=== PATIENT | female | born 1975 | race Caucasian/White ===

== ENCOUNTER 2024-01-23 05:37 | Observation (INO) ==
--- NOTE | 2024-01-23 06:11 | DR.EXTPAIN ---
HPI Time seen Time Seen by Provider: 01/23/24 06:10 PCP Primary Care Physician: Amparo Gipson HPI Comment HPI Comment: Redness, swelling and pain left foot times 2 days. while cleaning her porch Monday, she saw spider between her foot and the ground. increasing redness and swelling since. Symptoms worse today. Patient denies fever. Complaint/Symptoms Chief Complaint Doctor Comments: Patient is 48yr old female in ER with above history. Patient is diabetic. 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 Chief Complaint:: Pt states she was cleaning her porch last Monday and that when she look downed she seen a black spider between her foot and the ground. Pt states she is having pain to her left foot and that it feels like she is walking on bricks. 2+ pitting edema, redness and warm skin noted to left foot. Self Treatment fo Chief Complaint: Cephalein 500 mg COVID-19 Coronavirus risk:travel/contact w/high risk person: No Has patient experienced Coronavirus symptoms: No Nurses notes reviewed Nurses Notes Review: Yes Source History Provided: Patient Mode of arrival Mode of Arrival: Ambulatory Timing Onset of Chief Complaint: 01/21/24 PMH PMH Past Medical History: Yes Past Medical History: Diabetes Past Medical History Comment: Chrons, toe amputation x2 Past Surgical History: Yes Surgical History: and Tonsillectomy Past Surgical History Comment: hernia repair, tubal ligation Family History History of Family Medical Conditions: Yes Family Medical History: Diabetes Mellitus, Cancer and [place] Social History Does patient currently use any type of tobacco product: No Have you used tobacco products in the last 12 months: No Type of Tobacco Use: None Does any household member use tobacco: No Alcohol Use: None Do you use any recreational Drugs:: No Lives With: Alone Lives Where: Home Travel Risk Coronavirus risk:travel/contact w/high risk person: No Has patient experienced Coronavirus symptoms: No Infectious screening In the last 2 months have you had wt loss of >10#?: NO Have you had fever, night sweats or hemotysis?: No Have you traveled outside the country in the last 6 months?: No Isolation: Standard ROS Review of Systems Constitutional: No Symptoms Reported Eyes: No Symptoms Reported ENTM: No Symptoms Reported Respiratoy: No Symptoms Reported Cardiovascular: No Symptoms Reported Gastrointestinal/Abdominal: No Symptoms Reported Genitourinary: No Symptoms Reported Neurological: No Symptoms Reported Musculoskeletal: Foot (celuilitis, redness, pain left foot.) Integumentary: Wound (cellulitis left foot.) Hematologic/Lymphatic: No Symptoms Reported Endocrine: No Symptoms Reported Psychiatric: No Symptoms Reported All Other Systems: Reviewed and Negative PE Vital Signs Vitals: Vital Signs Temperature 98.2 F Pulse Rate 94 Respiratory Rate 18 Blood Pressure 132/74 O2 Sat by Pulse Oximetry 97 General Limitations: No Limitations General Appearance: Alert and In No Apparent Distress Head Head Exam: Normal Inspection and Atraumatic Eyes Eye exam: Normal Appearance ENT ENT Exam: Normal Exam, Normal Oropharynx, Normal External Ear Exam and TM's Normal Bilaterally Neck Neck Exam: Normal Inspection and Trachea Midline; negative Tenderness Chest Chest Inspection: Normal Inspection and Symmetric Chest Wall Rise; negative Tenderness Respiratory Respiratory Exam: Normal Lung Sounds Bilat; negative Accessory Muscle Use, Chest Wall Tenderness or Respiratory Distress Respiratory Exam: Bilateral: Clear to Auscultation Cardiovascular Cardiovascular Exam: Regular Rate, Normal Rhythm and Normal Heart Sounds; negative Systolic Murmur or Diastolic Murmur Abdominal Exam Abdominal Exam: Normal Inspection, Normal Bowel Sounds and Soft; negative Tenderness Extremities Extremities Exam: Tenderness (SWELLING, REDNESS AND TENDERNESS LEFT FOOT.) Lower Extremities Foot/Toe Exam: Tenderness (LT FOOT), Swelling (LT FOOT) and Other (PREVIOUS 2 LEFT TOE AMPUTATION) Back Back Exam: Normal Inspection; negative (R) CVA Tenderness or (L) CVA Tenderness Neurological Neurological Exam: Alert, Oriented X3 and Motor Sensory Deficit (DIABETIC NEUROPATHY.) Psychiatric Psychiatric Exam: Normal Affect and Normal Mood Skin Skin Exam: Other (INFECTED LEFT FOOT/CELLULITIS.) MDM Differential Diagnosis Differential Diagnosis: Other (INFECTED LEFT FOOT, CELLULITIS LEFT FOOT, CROHNS DISEASE.) COURSE Treatment Treatment: See orders done while patient was in ER. Patient is admitted to hospital for further management. Consultation Consultation Comments: Discussed patient with Dr. BLEVINS. He will admit patient. Education/Counseling Education/Counseling: Patient Educated On: Diagnosis ROR Labs Reviewed Laboratory Results Reviewed?: Yes 01/24/24 04:15 01/24/24 04:15 Laboratory: WBC 9.5 X10^3/uL (3.6-10.0) 01/23/24 06:30 RBC 3.04 X10^6/uL (3.5-5.4) L 01/23/24 06:30 Hgb 9.4 g/dL (12.0-16.0) L 01/23/24 06:30 Hct 27.4 % (36.0-47.0) L 01/23/24 06:30 MCV 90.2 fL (80.0-100.0) 01/23/24 06:30 MCH 30.9 pg (27.0-34.0) 01/23/24 06:30 MCHC 34.2 g/dL (33.0-35.0) 01/23/24 06:30 RDW 13.5 % (11.6-16.5) 01/23/24 06:30 Plt Count 302 X10^3/uL (150.0-450.0) 01/23/24 06:30 MPV 7.1 fL (7.4-11.0) L 01/23/24 06:30 Neut % (Auto) 73.2 % (42.0-75.0) 01/23/24 06:30 Lymph % (Auto) 17.0 % (21.0-51.0) L 01/23/24 06:30 [place] % (Auto) 6.7 % (0.0-13.0) 01/23/24 06:30 Eos % (Auto) 2.5 % (0.9-2.9) 01/23/24 06:30 Baso % (Auto) 0.6 % (0.2-1.0) 01/23/24 06:30 Neut # (Auto) 6.9 x10^3/uL (2.2-4.8) H 01/23/24 06:30 Lymph # (Auto) 1.6 X10^3/uL (1.3-2.9) 01/23/24 06:30 [place] # (Auto) 0.6 x10^3/uL (0.3-0.8) 01/23/24 06:30 Eos # (Auto) 0.2 x10^3/uL (0.0-0.2) 01/23/24 06:30 Baso # (Auto) 0.1 X10^3/uL (0.0-0.1) 01/23/24 06:30 Absolute Nucleated RBC 0.0 /100WBC 01/23/24 06:30 Sodium 139 mmol/L (136-145) 01/23/24 06:30 Corrected Sodium 139 mmol/L (136-145) 01/23/24 06:30 Potassium 3.4 mmol/L (3.5-5.1) L 01/23/24 06:30 Chloride 101 mmol/L (98-107) 01/23/24 06:30 Carbon Dioxide 26.4 mmol/L (21-32) 01/23/24 06:30 BUN 9 mg/dL (7-18) 01/23/24 06:30 Creatinine 1.05 mg/dL (0.55-1.02) H 01/23/24 06:30 Est GFR (MDRD) Af Amer > 60 (>60) 01/23/24 06:30 Est GFR (MDRD) Non-Af 60 (>60) 01/23/24 06:30 Glucose 115 mg/dL (65-99) H 01/23/24 06:30 Calcium 9.0 mg/dL (8.5-10.1) 01/23/24 06:30 Corrected Calcium 9.6 mg/dL (8.5-10.1) 01/23/24 06:30 Total Bilirubin 0.60 mg/dL (0.2-1.0) 01/23/24 06:30 AST 13 Units/L (15-37) L 01/23/24 06:30 ALT 14 Units/L (12-78) 01/23/24 06:30 Alkaline Phosphatase 61 Units/L (46-116) 01/23/24 06:30 Total Protein 8.1 g/dL (6.4-8.2) 01/23/24 06:30 Albumin 3.2 g/dL (3.4-5.0) L 01/23/24 06:30 Globulin 4.9 g/dL (2.5-4.5) H 01/23/24 06:30 Albumin/Globulin Ratio 0.7 Ratio (1.1-2.1) L 01/23/24 06:30 XRAY XRAY Interpreted by: Radiologist (Report noted.) and Self Opioid Opioid Risk Tool Age (Juan Antonio box if 16-45): Yes History of Preadolescent Sexual Abuse: No Total: 1 Total Score Risk Category: Low Risk Copyright: Michele URIBE predicting aberrant behaviors Discharge Plan Diagnosis Discharge Problem: Cellulitis of left foot Crohn disease Qualifiers: Gastrointestinal tract location: unspecified location Digestive disease complication type: unspecified complication Qualified Code(s): K50.919 - Crohn's disease, unspecified, with unspecified complications Discharge Plan Patient Disposition: 09 ADMITTED INPATIENT Condition: Stable Orders to Discharge Patient Discharge Orders: Discharge (Routine); Ordered 01/24/24 Ordered By: IHSAN BLEVINS
[2024-01-23] MEDS: NS 1,000 ML IV 1,000 ML IV SCH (06:50)
[2024-01-23] MEDS: VANCOMYCIN IV *PREMIX 1 G/200 ML BAG 1 G/200 ML PIGGYBACK IV ONE (06:50)
[2024-01-23 07:24] LABS: BASOPHILS # (AUTO) 0.1 X10^3/uL (0.0-0.1); BASOPHILS % (AUTO) 0.6 % (0.2-1.0); EOSINOPHILS # (AUTO) 0.2 x10^3/uL (0.0-0.2); EOSINOPHILS % (AUTO) 2.5 % (0.9-2.9); HEMATOCRIT 27.4 % (36.0-47.0); HEMOGLOBIN 9.4 g/dL (12.0-16.0); LYMPHOCYTES # (AUTO) 1.6 X10^3/uL (1.3-2.9); MEAN CORPUSCULAR HEMOGLOBIN 30.9 pg (27.0-34.0); MEAN CORPUSCULAR HGB CONC 34.2 g/dL (33.0-35.0); MEAN CORPUSCULAR VOLUME 90.2 fL (80.0-100.0); MEAN PLATELET VOLUME 7.1 fL (7.4-11.0); MONOCYTES # (AUTO) 0.6 x10^3/uL (0.3-0.8); MONOCYTES % (AUTO) 6.7 % (0.0-13.0); NEUTROPHILS # (AUTO) 6.9 x10^3/uL (2.2-4.8); NEUTROPHILS % (AUTO) 73.2 % (42.0-75.0); PLATELET COUNT 302 X10^3/uL (150.0-450.0); RED BLOOD COUNT 3.04 X10^6/uL (3.5-5.4); RED CELL DISTRIBUTION WIDTH 13.5 % (11.6-16.5); WHITE BLOOD COUNT 9.5 X10^3/uL (3.6-10.0)
[2024-01-23 07:30] LABS: BLOOD UREA NITROGEN 9 mg/dL (7-18); CARBON DIOXIDE 26.4 mmol/L (21-32); CHLORIDE 101 mmol/L (98-107); COR NA(FOR HYPERGLY) 139 mmol/L (136-145); CREATININE 1.05 mg/dL (0.55-1.02); GLUCOSE 115 mg/dL (65-99); POTASSIUM 3.4 mmol/L (3.5-5.1); SODIUM 139 mmol/L (136-145); eGFR NON BLACK RACES 60 (>60)
--- NOTE | 2024-01-23 08:25 | RAD ---
EXAM:FOOT, LEFTHISTORY:Pt states she is having pain to her left foot and that it feels like she is walking on bricks. 2+ pitting edema, redness and warm skin noted to left foot. Pt states she was bit by a black ; DM, CROHN'S, TOE AMP X 2 SX: CSECTION, TONSILS, HERNIA REPAIR, TUBAL LIGATIONCOMPARISON:None.TECHNIQUE:Three views obtainedFINDINGS:There is resection of the 2nd and 3rd rays to the level of the distal metatarsal. There is no acute fracture or dislocation. Alignment is maintained. There is soft tissue swelling over the dorsum of the foot. No subcutaneous emphysema or lytic bony destruction is noted. There is a plantar spur. There is degenerative change along the metatarsal tarsal joints.IMPRESSION:No acute findings.Previous surgical changes.Soft tissue swelling over the dorsum of the foot which could represent cellulitis. No bony destruction or subcutaneous emphysemaTHIS IS AN ELECTRONICALLY VERIFIED FINAL REPORT01/23/2024 8:12 AM - Electronically signed by Heriberto Gomez MD
[2024-01-23] MEDS ORDERED: ZOFRAN TAB 4 MG PO PRN (08:52)
[2024-01-23] MEDS ORDERED: VANCOMYCIN IV *PREMIX 1 G/200 ML BAG 1 G/200 ML PIGGYBACK IV SCH (09:00)
[2024-01-23 09:18] VITALS: BMI 29.2
[2024-01-23] MEDS: PENTASA CR PO SCH (10:51)
[2024-01-23 12:06] LABS: ALANINE AMINOTRANSFERASE 14 Units/L (12-78); ALBUMIN 3.2 g/dL (3.4-5.0); ASPARTATE AMINO TRANSFERASE 13 Units/L (15-37); COR CA(FOR HYPOALB) 9.6 mg/dL (8.5-10.1)
[2024-01-23 12:34] LABS: ALKALINE PHOSPHATASE 61 Units/L (46-116); TOTAL PROTEIN 8.1 g/dL (6.4-8.2)
[2024-01-23] MEDS: VANCOMYCIN IV *PREMIX 1 G/200 ML BAG 1 G/200 ML PIGGYBACK IV SCH (14:00)
[2024-01-24] MEDS: MOTRIN TAB 600 MG PO PRN (04:43)
[2024-01-24] MEDS: PHARMACY COMMENT IV ONE (05:33)
[2024-01-24 05:49] LABS: BASOPHILS # (AUTO) 0.1 X10^3/uL (0.0-0.1); BASOPHILS % (AUTO) 0.8 % (0.2-1.0); EOSINOPHILS # (AUTO) 0.2 x10^3/uL (0.0-0.2); EOSINOPHILS % (AUTO) 2.3 % (0.9-2.9); HEMATOCRIT 23.4 % (36.0-47.0); HEMOGLOBIN 7.9 g/dL (12.0-16.0); LYMPHOCYTES # (AUTO) 2.2 X10^3/uL (1.3-2.9); LYMPHOCYTES % (AUTO) 24.2 % (21.0-51.0); MEAN CORPUSCULAR HEMOGLOBIN 30.8 pg (27.0-34.0); MEAN CORPUSCULAR HGB CONC 33.8 g/dL (33.0-35.0); MEAN CORPUSCULAR VOLUME 91.1 fL (80.0-100.0); MEAN PLATELET VOLUME 7.6 fL (7.4-11.0); MONOCYTES # (AUTO) 0.6 x10^3/uL (0.3-0.8); MONOCYTES % (AUTO) 7.1 % (0.0-13.0); NEUTROPHILS # (AUTO) 5.9 x10^3/uL (2.2-4.8); NEUTROPHILS % (AUTO) 65.6 % (42.0-75.0); PLATELET COUNT 259 X10^3/uL (150.0-450.0); RED BLOOD COUNT 2.57 X10^6/uL (3.5-5.4); RED CELL DISTRIBUTION WIDTH 13.3 % (11.6-16.5); WHITE BLOOD COUNT 8.9 X10^3/uL (3.6-10.0)
[2024-01-24 06:00] LABS: MAGNESIUM 1.6 mg/dL (2.0-2.9)
[2024-01-24 06:04] LABS: CREATININE 0.92 mg/dL (0.55-1.02); VANCOMYCIN,TROUGH 18.4 ug/mL (15-20)
[2024-01-24] MEDS ORDERED: CONSULT PHARMACY - POTASSIUM & MAGNESIUM XX SCH (07:00)
[2024-01-24 07:01] LABS: ASPARTATE AMINO TRANSFERASE 12 Units/L (15-37); BLOOD UREA NITROGEN 9 mg/dL (7-18); CALCIUM 8.1 mg/dL (8.5-10.1); CARBON DIOXIDE 26.5 mmol/L (21-32); CHLORIDE 106 mmol/L (98-107); COR NA(FOR HYPERGLY) 141 mmol/L (136-145); CREATININE 0.88 mg/dL (0.55-1.02); GLUCOSE 130 mg/dL (65-99); POTASSIUM 3.4 mmol/L (3.5-5.1); SODIUM 140 mmol/L (136-145); eGFR NON BLACK RACES > 60 (>60)
[2024-01-24 07:02] LABS: ALBUMIN 2.4 g/dL (3.4-5.0); ALKALINE PHOSPHATASE 53 Units/L (46-116); COR CA(FOR HYPOALB) 9.4 mg/dL (8.5-10.1); TOTAL PROTEIN 6.7 g/dL (6.4-8.2)
[2024-01-24] MEDS: K-DUR TAB 20 MEQ PO SCH (08:48)
[2024-01-24] MEDS: MAG-OX TAB PO SCH (08:49)
[2024-01-24 09:16] LABS: ALANINE AMINOTRANSFERASE 13 Units/L (12-78)
[2024-01-24 10:10] VITALS: RESP 18; O2SAT 100
[2024-01-24 13:04] VITALS: BP 138/77; PULSE 84; TEMP 97.3
== END 2024-01-24 16:00 | disposition home or self-care (01) ==
LOC: ICU 05:42 → ER 05:42 → ICU 08:28
PROVIDERS: ADMIT Obstetrics & Gynecology Obstetrics; ATTEND Obstetrics & Gynecology Obstetrics
DX: E87.6 Hypokalemia; L03.116 Cellulitis of left lower limb; E11.40 Type 2 diabetes mellitus with diabetic neuropathy, unspecified; K50.90 Crohn's disease, unspecified, without complications; Z89.422 Acquired absence of other left toe(s)

== ENCOUNTER 2024-01-25 17:24 | Inpatient (IN) ==
--- NOTE | 2024-01-25 17:44 | DR.EXTPAIN ---
HPI Time seen Time Seen by Provider: 01/25/24 17:43 Complaint/Symptoms Chief Complaint Doctor Comments: 48-year-old female presents for evaluation. Patient admitted here 2 days ago with cellulitis of the left foot. Was treated with IV vancomycin and was showing improvement and was discharged yesterday. Patient return for outpatient IV therapy this day and received. Tonight she noticed that the foot is getting more swelling, there is a purulent area of the plantar surface of the forefoot, that has developed today. Patient has had prior partial amputations of the toes of the left foot. She has neuropathy of the left foot. Nurses notes reviewed Nurses Notes Review: Yes Source History Provided: Patient PMH PMH Past Medical History: Diabetes Past Medical History Comment: Crohn's Past Surgical History: Yes Surgical History: , Cholecystectomy and Tonsillectomy Past Surgical History Comment: L toes amputation Family History Family Medical History: Diabetes Mellitus, Cancer, [place], Sudden Cardiac and Hypertension Social History Does patient currently use any type of tobacco product: No Do you use any recreational Drugs:: No ROS Review of Systems Constitutional: No Symptoms Reported Eyes: No Symptoms Reported ENTM: No Symptoms Reported Respiratoy: No Symptoms Reported Cardiovascular: No Symptoms Reported Gastrointestinal/Abdominal: No Symptoms Reported Genitourinary: No Symptoms Reported Neurological: Paresthesia Musculoskeletal: See HPI Integumentary: See HPI All Other Systems: Reviewed and Negative PE Vital Signs Vitals: Vital Signs Temperature 98.3 F Pulse Rate 91 Pulse Rate 101 Respiratory Rate 18 Respiratory Rate 20 Respiratory Rate 18 Blood Pressure [Left Arm] 131/84 Blood Pressure 158/78 Blood Pressure 134/69 Blood Pressure 157/86 O2 Sat by Pulse Oximetry 100 O2 Sat by Pulse Oximetry 99 O2 Sat by Pulse Oximetry 97 General General Appearance: Alert and In No Apparent Distress Eyes Eye exam: PERRL and EOMI Neck Neck Exam: Normal Inspection Respiratory Respiratory Exam: negative Accessory Muscle Use or Respiratory Distress Neurological Neurological Exam: Alert, Oriented X3 and CN II-XII Intact Skin Skin Exam: Warm and Dry Other Exam Other Exam: L foot - with diffuse swelling, + erythema. Plantar surface with 1 cm by 3 cm area of white purulence. COURSE Treatment Treatment: Patient hospitalized 2 days ago for cellulitis of the left foot, possibly secondary to spider bite, spotted well to vancomycin, was discharged yesterday afternoon. Returned this a.m. for IV vancomycin therapy. Now with purulence the plantar surface of the left forefoot. Patient concerned because she has had partial amputations of the foot in the past. X-ray obtained, no obvious gas summation or osteomyelitis. Will obtain baseline labs. Will contin ue IV vancomycin. 1899 -discussed with Dr. Blevins, will admit the patient for further treatment. Will continue IV vancomycin. Consulted with podiatry, Dr. Estrada. Keep the patient n.p.o. after midnight and he will see the patient in the a.m. for possible debridement. Pt has developed worsening anemia over past 48 hours, probably due to multiple labs (9.4 to 6.5). + dizzy/lightheaded with standing at times. Will type & screen & transfuse 2 U PRBCs. ROR Labs Reviewed Laboratory Results Reviewed?: Yes 01/25/24 18:31 01/25/24 18:31 Laboratory: WBC 13.5 X10^3/uL (3.6-10.0) H 01/25/24 18:31 RBC 2.14 X10^6/uL (3.5-5.4) L 01/25/24 18:31 Hgb 6.5 g/dL (12.0-16.0) L* 01/25/24 18: Hct 19.3 % (36.0-47.0) L* 01/25/24 18: MCV 90.2 fL (80.0-100.0) 01/25/24 18:31 MCH 30.4 pg (27.0-34.0) 01/25/24 18: MCHC 33.7 g/dL (33.0-35.0) 01/25/24 18:31 RDW 13.4 % (11.6-16.5) 01/25/24 18:31 Plt Count 349 X10^3/uL (150.0-450.0) 01/25/24 18:31 MPV 7.0 fL (7.4-11.0) L 01/25/24 18:31 Neut % (Auto) 71.5 % (42.0-75.0) 01/25/24 18: Lymph % (Auto) 19.3 % (21.0-51.0) L 01/25/24 18:31 [place] % (Auto) 7.4 % (0.0-13.0) 01/25/24 18:31 Eos % (Auto) 1.1 % (0.9-2.9) 01/25/24 18:31 Baso % (Auto) 0.7 % (0.2-1.0) 01/25/24 18:31 Neut # (Auto) 9.7 x10^3/uL (2.2-4.8) H 01/25/24 18:31 Lymph # (Auto) 2.6 X10^3/uL (1.3-2.9) 01/25/24 18:31 [place] # (Auto) 1.0 x10^3/uL (0.3-0.8) H 01/25/24 18:31 Eos # (Auto) 0.1 x10^3/uL (0.0-0.2) 01/25/24 18:31 Baso # (Auto) 0.1 X10^3/uL (0.0-0.1) 01/25/24 18:31 Absolute Nucleated RBC 0.0 /100WBC 01/25/24 18:31 Sodium 138 mmol/L (136-145) 01/25/24 18:31 Corrected Sodium 139 mmol/L (136-145) 01/25/24 18:31 Potassium 3.3 mmol/L (3.5-5.1) L 01/25/24 18:31 Chloride 103 mmol/L (98-107) 01/25/24 18:31 Carbon Dioxide 27.8 mmol/L (21-32) 01/25/24 18:31 BUN 7 mg/dL (7-18) 01/25/24 18:31 Creatinine 0.99 mg/dL (0.55-1.02) 01/25/24 18:31 Est GFR (MDRD) Af Amer > 60 (>60) 01/25/24 18:31 Est GFR (MDRD) Non-Af > 60 (>60) 01/25/24 18:31 Glucose 141 mg/dL (65-99) H 01/25/24 18:31 Lactic Acid 0.6 mmol/L (0.4-2.0) 01/25/24 18:31 Calcium 8.9 mg/dL (8.5-10.1) 01/25/24 18:31 Corrected Calcium 9.8 mg/dL (8.5-10.1) 01/25/24 18:31 Total Bilirubin 0.30 mg/dL (0.2-1.0) 01/25/24 18:31 AST 13 Units/L (15-37) L 01/25/24 18:31 ALT 14 Units/L (12-78) 01/25/24 18:31 Alkaline Phosphatase 51 Units/L (46-116) 01/25/24 18:31 Total Protein 7.8 g/dL (6.4-8.2) 01/25/24 18:31 Albumin 2.9 g/dL (3.4-5.0) L 01/25/24 18:31 Globulin 4.9 g/dL (2.5-4.5) H 01/25/24 18:31 Albumin/Globulin Ratio 0.6 Ratio (1.1-2.1) L 01/25/24 18:31 + worsening anemia XRAY XRAY Interpreted by: Self X-ray Results: L foot - no gas formation or osteomyelitis. Opioid Opioid Risk Tool Age (Juan Antonio box if 16-45): No History of Preadolescent Sexual Abuse: No Total: 0 Total Score Risk Category: Low Risk Copyright: Michele URIBE predicting aberrant behaviors Discharge Plan Diagnosis Discharge Problem: Cellulitis and abscess of foot Discharge Plan Patient Disposition: 09 ADMITTED INPATIENT Condition: Stable Prescriptions: No Action ibuprofen 800 mg Tablet 800 mg PO TID PRN nitrofurantoin 100 mg Capsule 100 mg PO BID levothyroxine [Synthroid] 25 mcg Tablet 25 mcg PO QAM mesalamine [Pentasa] 500 mg Capsule, Extended Release 1,000 mg PO TID Qty: 90 4RF vancomycin 1.5 gram Recon Soln 1.5 g IV Q12H Health Concerns: Post Hospitalization: new medications and changes needed to prevent readmission or further decline. Pt educated and given instructions on all concerns. Plan of Treatment: Continue with present treatment and follow up plan. Pt is to keep follow up appointment as instructed and take medications as ordered. Orders to Discharge Patient Discharge Orders: Transfer (Routine); Ordered 01/25/24 Ordered By: Nick Pugh Follow ups/Referrals Follow ups/Referrals: IHSAN BLEVINS [Primary Care Provider] - 3 days
[2024-01-25 17:47] VITALS: BMI 27.4
[2024-01-25] MEDS: VANCOMYCIN HCL IV ONE (18:18)
[2024-01-25] MEDS: VANCOMYCIN IV *PREMIX 1.5 G/300 ML BAG 1.5 G/300 ML PIGGYBACK IV ONE (18:27)
[2024-01-25 18:55] LABS: BASOPHILS # (AUTO) 0.1 X10^3/uL (0.0-0.1); BASOPHILS % (AUTO) 0.7 % (0.2-1.0); EOSINOPHILS # (AUTO) 0.1 x10^3/uL (0.0-0.2); EOSINOPHILS % (AUTO) 1.1 % (0.9-2.9); LYMPHOCYTES # (AUTO) 2.6 X10^3/uL (1.3-2.9); LYMPHOCYTES % (AUTO) 19.3 % (21.0-51.0); MEAN CORPUSCULAR HEMOGLOBIN 30.4 pg (27.0-34.0); MEAN CORPUSCULAR HGB CONC 33.7 g/dL (33.0-35.0); MEAN CORPUSCULAR VOLUME 90.2 fL (80.0-100.0); MONOCYTES % (AUTO) 7.4 % (0.0-13.0); NEUTROPHILS # (AUTO) 9.7 x10^3/uL (2.2-4.8); NEUTROPHILS % (AUTO) 71.5 % (42.0-75.0); PLATELET COUNT 349 X10^3/uL (150.0-450.0); RED BLOOD COUNT 2.14 X10^6/uL (3.5-5.4); RED CELL DISTRIBUTION WIDTH 13.4 % (11.6-16.5); WHITE BLOOD COUNT 13.5 X10^3/uL (3.6-10.0)
[2024-01-25 18:59] LABS: HEMATOCRIT 19.3 % (36.0-47.0); HEMOGLOBIN 6.5 g/dL (12.0-16.0)
[2024-01-25 19:15] LABS: ALANINE AMINOTRANSFERASE 14 Units/L (12-78); ALBUMIN 2.9 g/dL (3.4-5.0); ALKALINE PHOSPHATASE 51 Units/L (46-116); ASPARTATE AMINO TRANSFERASE 13 Units/L (15-37); BLOOD UREA NITROGEN 7 mg/dL (7-18); CALCIUM 8.9 mg/dL (8.5-10.1); CARBON DIOXIDE 27.8 mmol/L (21-32); CHLORIDE 103 mmol/L (98-107); COR CA(FOR HYPOALB) 9.8 mg/dL (8.5-10.1); COR NA(FOR HYPERGLY) 139 mmol/L (136-145); CREATININE 0.99 mg/dL (0.55-1.02); GLUCOSE 141 mg/dL (65-99); POTASSIUM 3.3 mmol/L (3.5-5.1); SODIUM 138 mmol/L (136-145); TOTAL PROTEIN 7.8 g/dL (6.4-8.2); eGFR NON BLACK RACES > 60 (>60)
[2024-01-25] MEDS: NS 1,000 ML IV 1,000 ML IV SCH (22:00)
[2024-01-26] MEDS: CONSULT PHARMACY - POTASSIUM & MAGNESIUM XX SCH (00:26)
[2024-01-26] MEDS: MESALAMINE 500 MG PO SCH (00:29)
--- NOTE | 2024-01-26 04:37 | RAD ---
EXAM: FOOT, LEFT HISTORY: Cellulitis COMPARISON: 01/23/2024 TECHNICAL QUALITY: Satisfactory TECHNIQUE: AP, oblique, and lateral views FINDINGS: Previous amputation 2nd and 3rd toe again noted. No bony destruction or periosteal reaction. Small inferior calcaneal spur. Mild soft tissue swelling dorsum of the foot IMPRESSION: 1. No acute bony abnormality. 2. Unchanged soft tissue swelling dorsum of the foot THIS IS AN ELECTRONICALLY VERIFIED FINAL REPORT 01/26/2024 4:34 AM - Electronically signed by Mina Beach MD
[2024-01-26 05:04] LABS: BASOPHILS # (AUTO) 0.1 X10^3/uL (0.0-0.1); BASOPHILS % (AUTO) 0.7 % (0.2-1.0); EOSINOPHILS # (AUTO) 0.2 x10^3/uL (0.0-0.2); EOSINOPHILS % (AUTO) 2.6 % (0.9-2.9); HEMATOCRIT 26.2 % (36.0-47.0); LYMPHOCYTES # (AUTO) 2.2 X10^3/uL (1.3-2.9); LYMPHOCYTES % (AUTO) 24.2 % (21.0-51.0); MEAN CORPUSCULAR HEMOGLOBIN 30.6 pg (27.0-34.0); MONOCYTES # (AUTO) 0.8 x10^3/uL (0.3-0.8); MONOCYTES % (AUTO) 8.6 % (0.0-13.0); NEUTROPHILS # (AUTO) 5.8 x10^3/uL (2.2-4.8); NEUTROPHILS % (AUTO) 63.9 % (42.0-75.0); PLATELET COUNT 273 X10^3/uL (150.0-450.0); RED BLOOD COUNT 2.91 X10^6/uL (3.5-5.4); RED CELL DISTRIBUTION WIDTH 13.5 % (11.6-16.5); WHITE BLOOD COUNT 9.1 X10^3/uL (3.6-10.0)
[2024-01-26 05:18] LABS: HEMOGLOBIN 8.9 g/dL (12.0-16.0)
[2024-01-26 05:33] LABS: ALANINE AMINOTRANSFERASE 11 Units/L (12-78); ALBUMIN 2.4 g/dL (3.4-5.0); ALKALINE PHOSPHATASE 46 Units/L (46-116); ASPARTATE AMINO TRANSFERASE 10 Units/L (15-37); BLOOD UREA NITROGEN 6 mg/dL (7-18); CALCIUM 8.2 mg/dL (8.5-10.1); CARBON DIOXIDE 27.6 mmol/L (21-32); CHLORIDE 105 mmol/L (98-107); COR CA(FOR HYPOALB) 9.5 mg/dL (8.5-10.1); COR NA(FOR HYPERGLY) 141 mmol/L (136-145); CREATININE 0.83 mg/dL (0.55-1.02); GLUCOSE 116 mg/dL (65-99); MAGNESIUM 1.8 mg/dL (2.0-2.9); POTASSIUM 3.3 mmol/L (3.5-5.1); SODIUM 141 mmol/L (136-145); TOTAL PROTEIN 6.6 g/dL (6.4-8.2); eGFR NON BLACK RACES > 60 (>60)
[2024-01-26] MEDS: K-RIDER 10 MEQ/100 ML WATER 10 MEQ/100 ML BAG IV SCH (06:20)
[2024-01-26] MEDS: SYNTHROID 25 mcg TAB PO SCH (06:21)
[2024-01-26] MEDS: PENTASA CR PO SCH (08:39)
[2024-01-26] MEDS: VANCOMYCIN IV *PREMIX 1.5 G/300 ML BAG 1.5 G/300 ML PIGGYBACK IV SCH (08:50)
[2024-01-26] MEDS ORDERED: VANCOMYCIN IV *PREMIX 1.5 G/300 ML BAG 1.5 G/300 ML PIGGYBACK IV SCH (09:00)
[2024-01-26] MEDS ORDERED: VANCOMYCIN IV *PREMIX 500 mg/100 ML BAG 500 MG/100 ML PIGGYBACK IV SCH (09:00)
[2024-01-26] MEDS ORDERED: K-RIDER 10 MEQ/100 ML WATER 10 MEQ/100 ML BAG IV SCH ×3 (09:00→12:00)
--- NOTE | 2024-01-26 09:13 | DR.CONSULT ---
CONSULT Consultation for Day of: Date: 01/26/24 Chief Complaint Chief Complaint: abscess on left foot Allergies Allergies Allergy/AdvReac Type Severity Reaction Status Date / Time acetaminophen [From Percocet] Allergy Unknown Verified 01/25/24 18:04 droperidol [From Inapsine] Allergy Unknown Verified 01/25/24 18:04 oxycodone [From Percocet] Allergy Unknown Verified 01/25/24 18:04 History of Present Illness History of Present Illness: patient admitted through ER after sustaining suspected spider bit earlier this week. patient has been on IV abx and was D/Yuval adn then came back with mass and increased pain. was found to have abscess. Past Medical History Past Medical History: Diabetes Past Surgical History Surgical History: Abdominal Surgery, , [employer] Surgery, Ortho Surgery, Tonsillectomy and Other Family History Family Medical History: Cancer, [place] and Sudden Cardiac Social History Does patient currently use any type of tobacco product: No Type of Tobacco Use: None Does any household member use tobacco: No Alcohol Use: None Drug Use: None Medications Home Medications: acetaminophen [From Percocet] Allergy (Unknown, Verified 01/25/24 18:04) droperidol [From Inapsine] Allergy (Unknown, Verified 01/25/24 18:04) oxycodone [From Percocet] Allergy (Unknown, Verified 01/25/24 18:04) CONTINUE taking the following medications vancomycin 1.5 gram intravenous solution 1.5 g IV Q12H 01/25/24 [History] Review of Systems Constitutional: Fever Musculoskeletal: Leg Pain and Foot Pain Skin: Wound and Other Physical Exam Vital Signs: Vital Signs Temperature 98.0 F Temperature 98.8 F Pulse Rate 85 Pulse Rate 95 Respiratory Rate 19 Respiratory Rate 22 Blood Pressure 164/87 Blood Pressure 138/67 O2 Sat by Pulse Oximetry 100 O2 Sat by Pulse Oximetry 98 Plan (1) Cellulitis and abscess of foot: Status: Acute (2) Cellulitis of left foot: Status: Acute Plan: patient has been NPO. recommend I&D and washout of abscess. has fluctuant portion on plantar foot. will likely need to pack and may need local abx beads for delivery, will see how deep it is. may be contained to sub Q and not extend to deep fascial region. continue current IV abx. will need general anesthesia due to pain even though neuropathic.
[2024-01-26 09:16] LABS: HEMATOCRIT 29.6 % (36.0-47.0); HEMOGLOBIN 10.2 g/dL (12.0-16.0)
[2024-01-26] MEDS: NS 100 ML IV 100 ML with VENOFER 200 MG IV ONE (10:00)
[2024-01-26] MEDS: MAGNESIUM SULFATE 1 GRAM/100 mL PREMIX 1 G/100 ML BAG IV SCH (11:00)
[2024-01-26] MEDS: NS 250 ML IV 250 ML IV ONE ×2 (11:05→23:54)
[2024-01-26] MEDS: PROCRIT or EPOGEN VIAL 10,000 UNITS SC ONE (11:16)
[2024-01-26] MEDS: PROCRIT or EPOGEN VIAL 10,000 UNITS ONE (11:24)
[2024-01-26] MEDS: FENTANYL VIAL INJ 100 mcg ONE (13:23)
[2024-01-26] MEDS: NS 1,000 ML IV 1,000 ML ONE (13:39)
[2024-01-26] MEDS: NS 100 ML IV 100 ML ONE (14:18)
[2024-01-26] MEDS: ANCEF VIAL 1 GRAM ONE (14:18)
[2024-01-26] MEDS: BETADINE SOLN ONE (14:20)
[2024-01-26] MEDS ORDERED: BENADRYL INJ 50 MG VIAL IVP PRN (14:31)
[2024-01-26] MEDS ORDERED: DILAUDID INJ IVP PRN (14:31)
[2024-01-26] MEDS ORDERED: ZOFRAN INJ 4 MG VIAL IVP PRN (14:31)
[2024-01-26] MEDS ORDERED: BARHEMSYS INJ IVP PRN (14:31)
[2024-01-26] MEDS ORDERED: REGLAN INJ 10 MG VIAL IVP PRN (14:31)
[2024-01-26] MEDS ORDERED: XYLOCAINE 2 % (PLAIN) ONE ×2 (14:34)
[2024-01-26] MEDS: REGLAN INJ 10 MG VIAL ONE (14:34)
[2024-01-26] MEDS: VERSED ONE (14:34)
[2024-01-26] MEDS: PEPCID 20 MG VIAL ONE (14:34)
[2024-01-26] MEDS: ZOFRAN INJ 4 MG VIAL ONE (14:34)
[2024-01-26] MEDS: DIPRIVAN VIAL 20 ML ONE (14:34)
[2024-01-26] MEDS: MARCAINE 0.25% INJ ONE (14:48)
[2024-01-26] MEDS: K-DUR TAB 20 MEQ PO SCH (16:46)
--- NOTE | 2024-01-26 17:05 | VAS ---
EXAM: LOWER EXT ARTERIAL HISTORY: wound, abscess, limb salvage.; WOUND, ABSCESS, LIMB SALVAGE POST OPERATION COMPARISON: No relevant prior studies available. TECHNIQUE: 43 static color Doppler flow/vascular waveform images of the arterial structures in both lower extrem ities were reviewed. FINDINGS: Right lower extremity: Triphasic waveforms throughout the arterial structures of the right lower extremity. Left lower extremity: Triphasic waveforms throughout the arterial structures in the left lower extremity. IMPRESSION: Normal evaluation of the arterial structures in the lower extremities. Systolic velocities are symme tric between the right and left lower extremities. THIS IS AN ELECTRONICALLY VERIFIED FINAL REPORT 01/26/2024 5:01 PM - Electronically signed by Christophe Lema MD
[2024-01-26] MEDS: DILAUDID INJ IVP PRN (20:39)
[2024-01-26] MEDS: PHARMACY COMMENT IV NR (20:45)
[2024-01-26] MEDS: CYTOTEC PO SCH (20:46)
[2024-01-26 21:27] LABS: CREATININE 0.86 mg/dL (0.55-1.02); VANCOMYCIN,TROUGH 15.9 ug/mL (15-20)
[2024-01-27 05:34] LABS: BASOPHILS # (AUTO) 0.1 X10^3/uL (0.0-0.1); BASOPHILS % (AUTO) 0.7 % (0.2-1.0); EOSINOPHILS # (AUTO) 0.2 x10^3/uL (0.0-0.2); EOSINOPHILS % (AUTO) 2.2 % (0.9-2.9); HEMOGLOBIN 10.5 g/dL (12.0-16.0); LYMPHOCYTES # (AUTO) 1.8 X10^3/uL (1.3-2.9); LYMPHOCYTES % (AUTO) 17.6 % (21.0-51.0); MEAN CORPUSCULAR HEMOGLOBIN 30.5 pg (27.0-34.0); MEAN CORPUSCULAR HGB CONC 33.8 g/dL (33.0-35.0); MEAN CORPUSCULAR VOLUME 90.4 fL (80.0-100.0); MEAN PLATELET VOLUME 7.2 fL (7.4-11.0); MONOCYTES # (AUTO) 0.7 x10^3/uL (0.3-0.8); MONOCYTES % (AUTO) 7.2 % (0.0-13.0); NEUTROPHILS # (AUTO) 7.4 x10^3/uL (2.2-4.8); NEUTROPHILS % (AUTO) 72.3 % (42.0-75.0); PLATELET COUNT 325 X10^3/uL (150.0-450.0); RED BLOOD COUNT 3.43 X10^6/uL (3.5-5.4); RED CELL DISTRIBUTION WIDTH 13.5 % (11.6-16.5); WHITE BLOOD COUNT 10.2 X10^3/uL (3.6-10.0)
[2024-01-27 05:54] LABS: ALANINE AMINOTRANSFERASE 13 Units/L (12-78); ALBUMIN 2.4 g/dL (3.4-5.0); ALKALINE PHOSPHATASE 47 Units/L (46-116); ASPARTATE AMINO TRANSFERASE 12 Units/L (15-37); BLOOD UREA NITROGEN 6 mg/dL (7-18); CARBON DIOXIDE 25.8 mmol/L (21-32); CHLORIDE 106 mmol/L (98-107); COR CA(FOR HYPOALB) 9.3 mg/dL (8.5-10.1); CREATININE 0.83 mg/dL (0.55-1.02); GLUCOSE 104 mg/dL (65-99); MAGNESIUM 2.1 mg/dL (2.0-2.9); POTASSIUM 3.6 mmol/L (3.5-5.1); SODIUM 140 mmol/L (136-145); TOTAL PROTEIN 7.1 g/dL (6.4-8.2); eGFR NON BLACK RACES > 60 (>60)
[2024-01-27] MEDS ORDERED: CONSULT PHARMACY - POTASSIUM & MAGNESIUM XX SCH (07:00)
[2024-01-27] MEDS: K-DUR TAB 20 MEQ PO SCH (07:56)
[2024-01-27] MEDS ORDERED: PHARMACY COMMENT IV SCH (08:30)
[2024-01-27] MEDS: ZOFRAN INJ 4 MG VIAL IVP PRN (08:42)
--- NOTE | 2024-01-27 08:52 | NOTE.SOAP ---
Soap Note Note for Day of Date of Exam: 01/27/24 Subjective Data Subjective Data: resting comfortably. NAD. no strikethrough on bandage. no events overnight. Objective Data Objective Data: packing in the wound. no purulence expressed today. erythema resolving. no new purulence. no maldor. toes without ischemia. Assessment Assessment: 48 f S/P abscess washout. Plan Plan: continue packing. awaiting cultures. continue packing. packing placed today with 4x4 today. will continue dressing changes. awaiting vascular arterial duplex , may need to return to OR next week, will see how continues to respond. she did get approved for dalbavancin. continue current Vanco.
[2024-01-27] MEDS: ZOFRAN INJ 4 MG VIAL ONE (11:44)
[2024-01-27] MEDS: PHENERGAN INJ 25 MG IM PRN (13:30)
[2024-01-27] MEDS: PHENERGAN INJ 25 MG IM ONE (14:43)
[2024-01-27] MEDS: NovoLIN R (or HumuLIN R) SC PRN (18:36)
[2024-01-27] MEDS: ULTRAM PO PRN (21:07)
[2024-01-28 05:04] LABS: BASOPHILS # (AUTO) 0.1 X10^3/uL (0.0-0.1); BASOPHILS % (AUTO) 0.6 % (0.2-1.0); EOSINOPHILS # (AUTO) 0.3 x10^3/uL (0.0-0.2); EOSINOPHILS % (AUTO) 3.5 % (0.9-2.9); HEMATOCRIT 28.6 % (36.0-47.0); HEMOGLOBIN 9.7 g/dL (12.0-16.0); LYMPHOCYTES # (AUTO) 2.5 X10^3/uL (1.3-2.9); LYMPHOCYTES % (AUTO) 26.7 % (21.0-51.0); MEAN CORPUSCULAR HEMOGLOBIN 30.5 pg (27.0-34.0); MEAN CORPUSCULAR HGB CONC 33.9 g/dL (33.0-35.0); MEAN CORPUSCULAR VOLUME 89.9 fL (80.0-100.0); MEAN PLATELET VOLUME 6.9 fL (7.4-11.0); MONOCYTES # (AUTO) 0.7 x10^3/uL (0.3-0.8); MONOCYTES % (AUTO) 7.2 % (0.0-13.0); NEUTROPHILS # (AUTO) 5.8 x10^3/uL (2.2-4.8); PLATELET COUNT 311 X10^3/uL (150.0-450.0); RED BLOOD COUNT 3.18 X10^6/uL (3.5-5.4); RED CELL DISTRIBUTION WIDTH 13.7 % (11.6-16.5); WHITE BLOOD COUNT 9.3 X10^3/uL (3.6-10.0)
[2024-01-28 05:26] LABS: ALANINE AMINOTRANSFERASE 10 Units/L (12-78); ALBUMIN 2.3 g/dL (3.4-5.0); ALKALINE PHOSPHATASE 47 Units/L (46-116); ASPARTATE AMINO TRANSFERASE 12 Units/L (15-37); BLOOD UREA NITROGEN 7 mg/dL (7-18); CALCIUM 7.9 mg/dL (8.5-10.1); CARBON DIOXIDE 26.8 mmol/L (21-32); CHLORIDE 107 mmol/L (98-107); COR CA(FOR HYPOALB) 9.3 mg/dL (8.5-10.1); CREATININE 0.84 mg/dL (0.55-1.02); GLUCOSE 96 mg/dL (65-99); POTASSIUM 3.3 mmol/L (3.5-5.1); SODIUM 141 mmol/L (136-145); TOTAL PROTEIN 6.8 g/dL (6.4-8.2); eGFR NON BLACK RACES > 60 (>60)
[2024-01-28] MEDS ORDERED: CONSULT PHARMACY - POTASSIUM & MAGNESIUM XX SCH (07:00)
[2024-01-28 08:19] LABS: CREATININE 0.83 mg/dL (0.55-1.02); VANCOMYCIN,TROUGH 16.8 ug/mL (15-20)
[2024-01-28] MEDS: MAG-OX TAB PO SCH (09:23)
[2024-01-28] MEDS: K-DUR TAB 20 MEQ PO SCH (09:24)
[2024-01-28] MEDS: NS 100 ML IV 100 ML with VENOFER 300 MG IV ONE (11:30)
[2024-01-28] MEDS: PROCRIT or EPOGEN VIAL 20,000 UNITS SC ONE (11:31)
--- NOTE | 2024-01-28 19:26 | NOTE.SOAP ---
Soap Note Note for Day of Date of Exam: 01/28/24 Subjective Data Subjective Data: patient seen bedside with daughters . no acute findings. no issues overnight. no pain. Objective Data Objective Data: foot with some mild maceration at the 7 oclock position on the wound. she has laceration on the plantar foot from surgical wound that is 4cm in length. she has healthy granular tissue noted. no malodor on packing. erthema resolving and edema reduced significantly. Assessment Assessment: 48 F POD#2 from her I&D with washout of the left foot. DM with neuroapthy and limb threatenging infection. Plan Plan: 1. No OR tomorrow, clinical findings improving. will continue packing and will have her do packing twice daily at home. 2. cultures reviewed. currently enterobactor and ecoli, will await sensitivities. discussed with Dr. Gay, he is going to add cipro and we will await final decision once info available. 3. arterial studies reviewed with good triphasic waves and no issues. 4. will do daily packing twice a day with dry dressing. ok to use betadine with packing if she has it. she will use 4x4 to do the packing and doesn't need formal packing. use post op shoe on foot at all times and ok for heel weightbearing only. she does have knee scooter. she may need intrinsic foot flap in future but will see how does over next week. 5. she will see me in my office in [place] and discussed with her.
[2024-01-28] MEDS: CIPRO IV 400 MG PREMIX* 400 MG/200 ML IV.SOLN. IV SCH (20:01)
[2024-01-29 05:11] LABS: ALANINE AMINOTRANSFERASE 11 Units/L (12-78); ALKALINE PHOSPHATASE 47 Units/L (46-116); ASPARTATE AMINO TRANSFERASE 11 Units/L (15-37); BLOOD UREA NITROGEN 6 mg/dL (7-18); CALCIUM 7.7 mg/dL (8.5-10.1); CHLORIDE 107 mmol/L (98-107); COR CA(FOR HYPOALB) 9.3 mg/dL (8.5-10.1); COR NA(FOR HYPERGLY) 140 mmol/L (136-145); CREATININE 0.78 mg/dL (0.55-1.02); GLUCOSE 113 mg/dL (65-99); POTASSIUM 3.3 mmol/L (3.5-5.1); SODIUM 140 mmol/L (136-145); TOTAL PROTEIN 6.4 g/dL (6.4-8.2); eGFR NON BLACK RACES > 60 (>60)
[2024-01-29] MEDS ORDERED: CONSULT PHARMACY - POTASSIUM & MAGNESIUM XX SCH (06:00)
[2024-01-29] MEDS: K-DUR TAB 20 MEQ PO SCH (08:14)
[2024-01-29 08:25] VITALS: TEMP 98.7
[2024-01-29 12:38] VITALS: BP 143/85; PULSE 85; RESP 18; O2SAT 98
[2024-01-30] MEDS ORDERED: PHARMACY COMMENT IV ONE (08:00)
== END 2024-01-29 12:48 | disposition home or self-care (01) | DRG 603 ==
LOC: ICU 17:24 → ER 17:24 → ICU 21:13
PROVIDERS: ADMIT Obstetrics & Gynecology Obstetrics; ATTEND Obstetrics & Gynecology Obstetrics
DX: E11.40 Type 2 diabetes mellitus with diabetic neuropathy, unspecified; B96.89 Other specified bacterial agents as the cause of diseases classified elsewhere; E83.42 Hypomagnesemia; E11.65 Type 2 diabetes mellitus with hyperglycemia; B96.29 Other Escherichia coli [E. coli] as the cause of diseases classified elsewhere; Z89.422 Acquired absence of other left toe(s); K50.90 Crohn's disease, unspecified, without complications; L02.612 Cutaneous abscess of left foot; R10.13 Epigastric pain; R42 Dizziness and giddiness; L03.116 Cellulitis of left lower limb; D63.8 Anemia in other chronic diseases classified elsewhere